=== PATIENT | female | born 1955 | race Caucasian/White ===

== ENCOUNTER → 2021-07-12 | Outpatient (CLI) | payer MEDICARE, OTHER ==
--- NOTE | 2021-07-12 16:13 | RAD ---
Examination: Bilateral Lower Extremity Venous Doppler Ultrasound History: Bilateral lower extremity edema Comparison: None Procedure: Mg scale, color flow 2D and spectal waveform analysis images are obtained with and witho ut compression in the area of the common femoral vein, superficial femoral vein - femoral vein juncti on, main femoral vein (superficial femoral vein) and popliteal vein. Veins of the proximal calf are a lso imaged. Findings: Limited examination due to patient body habitus. There is normal duplex flow, color flow and compress ibility of all visualized vein segments. No evidence of deep venous thrombus is present. Impression: Limited examination due to patient body habitus. No evidence of DVT in the visualized bilateral lower extremity venous system. Electronically signed by: John Browne MD (07/12/2021 4:11 PM) [id number]
== END ==
LOC: US 15:15
PROVIDERS: ATTEND Nurse Practitioner Family
DX: R60.0 Localized edema (principal)
CPT/HCPCS: 93970